=== PATIENT | male | born 2000 | race Caucasian/White ===

== ENCOUNTER 2018-12-21 12:08 | Emergency (ER) | payer OTHER ==
[2018-12-21] MEDS: LIDOCAINE/MYLANTA 40 ML BTL PO (13:16)
[2018-12-21] MEDS: FAMOTIDINE 20 MG TAB PO (13:16)
[2018-12-21] MEDS ORDERED: BELLADONNA/PHENOBARBITAL 5ML CUP PO (13:30)
[2018-12-21] MEDS: BELLADONNA/PHENOBARBITAL TAB PO (13:43)
== END 2018-12-21 15:26 | disposition home or self-care (01) ==
LOC: FTE 12:08
DX: K21.9 Gastro-esophageal reflux disease without esophagitis (principal)
CPT/HCPCS: 74019; 99283-25